=== PATIENT | male | born 1975 | race Two or more races ===

== ENCOUNTER 2019-11-06 12:45 | Outpatient (CLI) | payer SELFPAY | END 2019-11-06 23:59 | disposition home or self-care (01) | LOC: RAD 12:45 | PROVIDERS: ATTEND Physician Assistant | DX: R91.8 Other nonspecific abnormal finding of lung field (principal); J18.9 Pneumonia, unspecified organism; R06.00 Dyspnea, unspecified | CPT/HCPCS: 71046 ==

== ENCOUNTER 2019-11-06 14:19 | Inpatient (IN) | payer OTHER ==
[~2019-11-06] VITALS: Ht 182.9 cm; Wt 83.1 kg
--- NOTE | 2019-11-06 14:40 | NUR ---
PT C/O COUGH X11 DAYS, HAS BEEN ON ABX FOR 5 DAYS. PER PCP, XRAY TODAY SHOWS PNA. NO RESP DISTRESS NOTED, NOR ANY COUGHING. PT CONNECTED TO MONITORING. CALL LIGHT IN REACH. AWAITNG ORDERS AT THIS TIME.
--- NOTE | 2019-11-06 15:16 | NUR ---
PIV PLACED, LABS DRAWN AND SENT TO LAB. PT RESTING COMFORTABLY ON GURJOSE. ALEXIA.
[2019-11-06] MEDS ORDERED: SODIUM CHLORIDE FLUSH 10ML SYR IVF ONE (15:30)
--- NOTE | 2019-11-06 15:30 | NUR ---
REPORT GIVEN TO YOAN ESTEVEZ. PT MOVED TO [facility] ROOM. PT TO BE ADMITTED.
--- NOTE | 2019-11-06 15:32 | NUR ---
SUPPLY CHAIN PLANNER: COVID NUMBER GIVEN
[2019-11-06 15:43] LABS: ALANINE AMINOTRANSFERASE 46 U/L (12-78); ALBUMIN 2.9 g/dL (3.4-5.0); ANION GAP 7 mmol/L (5-15); CALCIUM 7.9 mg/dL (8.5-10.1); CHLORIDE 106 mmol/L (98-107); CREATININE 0.89 mg/dL (0.7-1.3)
[2019-11-06 15:47] LABS: BASOPHILS # (AUTO) 0.02 x10^3/uL (0-0.1); BASOPHILS % (AUTO) 0 % (0-1); EOSINOPHILS % (AUTO) 0 % (1-7); LYMPHOCYTES # (AUTO) 0.88 x10^3/uL (1-3.4); LYMPHOCYTES % (AUTO) 15 % (22-44); MD NO; MEAN CORPUSCULAR HGB CONC 34.8 g/dL (33.2-36.2); MEAN CORPUSCULAR VOLUME 89.2 fL (81-97); MEAN PLATELET VOLUME 8.5 fL (7.4-10.4); MONOCYTES # (AUTO) 0.28 x10^3/uL (0.2-0.8); MONOCYTES % (AUTO) 5 % (2-9); NEUTROPHILS # (AUTO) 4.72 x10^3/uL (1.8-6.8); NEUTROPHILS % (AUTO) 80 % (42-75); PLATELET COUNT 187 x10^3/uL (130-400); RED BLOOD COUNT 4.55 x10^6/uL (4.38-5.82); RED CELL DISTRIBUTION WIDTH 12.6 % (9.4-14.8)
[2019-11-06 15:48] LABS: ALKALINE PHOSPHATASE 65 U/L (45-117); BILIRUBIN,TOTAL 0.3 mg/dL (0.2-1.0); TOTAL PROTEIN 7.1 g/dL (6.4-8.2); TROPONIN I < 0.015 ng/mL (0.000-0.045)
--- NOTE | 2019-11-06 15:48 | NUR ---
MOVED PATIENT FROM ROOM 23 TO ROOM 39 FOR NEGATIVE PRESSURE AND RULE-OUT COVID-19. VS STABLE AT THIS TIME. PATIENT WAS ABLE TO AMBULATE WITHOUT ASSISTANCE FROM [facility] FEET TO [facility] IN ROOM 39. PT TACHYPNIC AT APPROX 30 RESP./MIN. SPO2 ON ROOM AIR IS 92%. PT IN NORMAL SINUS RHYTHM. CALL LIGHT IN LAP.
[2019-11-06 15:51] LABS: HCT (SEDRATE) 40.6 % (39.2-51.8)
[2019-11-06] MEDS ORDERED: ACETAMINOPHEN 325 MG TABLET PO PRN (16:00)
[2019-11-06] MEDS: HYDROXYCHLOROQUINE 200 MG TABLET PO SCH ×3 (16:00→23:50)
[2019-11-06] MEDS ORDERED: morphine SULFATE 10 MG/ML, 1ML IVPush PRN (16:00)
[2019-11-06] MEDS ORDERED: ALBUTEROL HFA 90 MCG/SPRAY INH ONE (16:00)
[2019-11-06 16:11] LABS: C-REACTIVE PROTEIN, QUANT 1.7 mg/dL (0.02-0.49)
[2019-11-06] MEDS: CEFTRIAXONE PMX 2GM/50ML 50 ML IV SCH (16:45)
[2019-11-06] MEDS: ENOXAPARIN 40 MG/0.4 ML SQ SCH (16:46)
--- NOTE | 2019-11-06 16:48 | NUR ---
PT MEDICATED PER EMAR. VS UPDATED AND WNL. ALBUTEROL GIVEN WITH SPACER CHAMBER.
[2019-11-06] MEDS: SODIUM CHLORIDE 0.9% 1,000 ML IV SCH ×2 (17:15→23:14)
--- NOTE | 2019-11-06 17:16 | NUR ---
IV ROCEPHIN COMPLETE. NS AT 125ML/HR STARTED. PATIENT VOIDED 250ML URINE IN URINAL. 2 WARM BLANKETS PROVIDED. PT RESTING WITH NO COMPLAINTS. VS STABLE.
[2019-11-06] MEDS ORDERED: POTASSIUM CHLORIDE 20 MEQ TAB.ER.PRT PO ONE (17:30)
--- NOTE | 2019-11-06 17:32 | NUR ---
SBAR TELEPHONE HAND-OFF REPORT GIVEN TO HERB PALAFOX IN ICU.
--- NOTE | 2019-11-06 17:58 | NUR ---
ANJEL MTZ TOOK PATIENT TO ICU AND WAS THE "DIRTY" TRANSPORTER.
--- NOTE | 2019-11-06 17:58 | NUR ---
THIS TECH WAS "CLEAN" DURING TRANSPORT
[2019-11-06 18:06] VITALS: BP 135/83
[2019-11-06 22:00] VITALS: BP 122/78
[2019-11-06 23:05] VITALS: BP 176/97
[2019-11-07 03:11] VITALS: BP 112/59
[2019-11-07] MEDS: SODIUM CHLORIDE 0.9% 1,000 ML IV SCH (03:13)
[2019-11-07 05:50] LABS: BASOPHILS # (AUTO) 0.02 x10^3/uL (0-0.1); BASOPHILS % (AUTO) 0 % (0-1); EOSINOPHILS # (AUTO) 0.02 x10^3/uL (0-0.4); EOSINOPHILS % (AUTO) 0 % (1-7); LYMPHOCYTES % (AUTO) 19 % (22-44); MD NO; MEAN CORPUSCULAR HEMOGLOBIN 31.2 pg (27.5-34.5); MEAN CORPUSCULAR HGB CONC 34.7 g/dL (33.2-36.2); MEAN CORPUSCULAR VOLUME 89.8 fL (81-97); MEAN PLATELET VOLUME 8.5 fL (7.4-10.4); MONOCYTES # (AUTO) 0.36 x10^3/uL (0.2-0.8); MONOCYTES % (AUTO) 5 % (2-9); NEUTROPHILS # (AUTO) 5.11 x10^3/uL (1.8-6.8); NEUTROPHILS % (AUTO) 75 % (42-75); PLATELET COUNT 187 x10^3/uL (130-400); RED BLOOD COUNT 4.24 x10^6/uL (4.38-5.82); RED CELL DISTRIBUTION WIDTH 12.6 % (9.4-14.8)
[2019-11-07 06:03] LABS: ALBUMIN 2.6 g/dL (3.4-5.0); ANION GAP 7 mmol/L (5-15); CALCIUM 7.7 mg/dL (8.5-10.1); CHLORIDE 107 mmol/L (98-107)
[2019-11-07 06:07] LABS: ALANINE AMINOTRANSFERASE 43 U/L (12-78); ALKALINE PHOSPHATASE 59 U/L (45-117); BILIRUBIN,TOTAL 0.5 mg/dL (0.2-1.0); CREATININE 0.72 mg/dL (0.7-1.3); TOTAL PROTEIN 6.4 g/dL (6.4-8.2)
[2019-11-07 07:30] VITALS: BP 115/69
[2019-11-07] MEDS: HYDROXYCHLOROQUINE 200 MG TABLET PO SCH ×2 (08:13→15:47)
[2019-11-07 09:23] LABS: CLOSTRIDIUM DIFFICILE ANTIGEN NEGATIVE; CLOSTRIDIUM DIFFICILE TOXIN NEGATIVE (Negative)
[2019-11-07] MEDS ORDERED: DIPHENOXYLATE/ATROPINE TABLET PO PRN (11:00)
[2019-11-07] MEDS: ENOXAPARIN 40 MG/0.4 ML SQ SCH (15:46)
[2019-11-07] MEDS: CEFTRIAXONE PMX 2GM/50ML 50 ML IV SCH (15:47)
[2019-11-07 20:00] VITALS: BP 144/90
[2019-11-07] MEDS: TRAZODONE 50MG TABLET PO SCH (21:06)
[2019-11-08] MEDS: HYDROXYCHLOROQUINE 200 MG TABLET PO SCH ×3 (00:22→16:30)
[2019-11-08 02:00] VITALS: BP 100/67
[2019-11-08 05:38] LABS: BASOPHILS # (AUTO) 0.02 x10^3/uL (0-0.1); BASOPHILS % (AUTO) 0 % (0-1); EOSINOPHILS # (AUTO) 0.05 x10^3/uL (0-0.4); EOSINOPHILS % (AUTO) 1 % (1-7); LYMPHOCYTES # (AUTO) 1.22 x10^3/uL (1-3.4); LYMPHOCYTES % (AUTO) 22 % (22-44); MD NO; MEAN CORPUSCULAR HEMOGLOBIN 30.8 pg (27.5-34.5); MEAN CORPUSCULAR HGB CONC 33.8 g/dL (33.2-36.2); MEAN CORPUSCULAR VOLUME 91.2 fL (81-97); MEAN PLATELET VOLUME 7.7 fL (7.4-10.4); MONOCYTES % (AUTO) 9 % (2-9); NEUTROPHILS # (AUTO) 3.71 x10^3/uL (1.8-6.8); NEUTROPHILS % (AUTO) 67 % (42-75); PLATELET COUNT 248 x10^3/uL (130-400); RED BLOOD COUNT 4.52 x10^6/uL (4.38-5.82); RED CELL DISTRIBUTION WIDTH 12.9 % (9.4-14.8)
[2019-11-08 05:49] LABS: ANION GAP 5 mmol/L (5-15); CALCIUM 8.8 mg/dL (8.5-10.1); CHLORIDE 109 mmol/L (98-107); CREATININE 0.69 mg/dL (0.7-1.3)
[2019-11-08 09:43] VITALS: BP 119/71
[2019-11-08 10:19] LABS: C-REACTIVE PROTEIN, QUANT 1.9 mg/dL (0.02-0.49)
[2019-11-08 13:38] LABS: O2 FLOW 5 L/min
[2019-11-08 15:30] VITALS: BP 111/74
[2019-11-08] MEDS: ENOXAPARIN 40 MG/0.4 ML SQ SCH (16:30)
[2019-11-08] MEDS: CEFTRIAXONE PMX 2GM/50ML 50 ML IV SCH (16:30)
[2019-11-08 20:00] VITALS: BP 111/74
[2019-11-08] MEDS: TRAZODONE 50MG TABLET PO SCH (21:08)
[2019-11-09] MEDS: HYDROXYCHLOROQUINE 200 MG TABLET PO SCH ×3 (00:17→16:23)
[2019-11-09 02:00] VITALS: BP 107/75
[2019-11-09] MEDS ORDERED: LORazepam 2 MG/ML, 1ML IVPush ONE (02:30)
[2019-11-09] MEDS ORDERED: LORazepam 2 MG/ML, 1ML ONE (02:30)
[2019-11-09 05:01] LABS: BASOPHILS % (AUTO) 0 % (0-1); EOSINOPHILS # (AUTO) 0.11 x10^3/uL (0-0.4); EOSINOPHILS % (AUTO) 2 % (1-7); LYMPHOCYTES # (AUTO) 1.17 x10^3/uL (1-3.4); LYMPHOCYTES % (AUTO) 17 % (22-44); MD NO; MEAN CORPUSCULAR HEMOGLOBIN 30.7 pg (27.5-34.5); MEAN CORPUSCULAR HGB CONC 34.3 g/dL (33.2-36.2); MEAN CORPUSCULAR VOLUME 89.7 fL (81-97); MEAN PLATELET VOLUME 8.1 fL (7.4-10.4); MONOCYTES # (AUTO) 0.63 x10^3/uL (0.2-0.8); MONOCYTES % (AUTO) 9 % (2-9); NEUTROPHILS # (AUTO) 5.13 x10^3/uL (1.8-6.8); NEUTROPHILS % (AUTO) 73 % (42-75); PLATELET COUNT 304 x10^3/uL (130-400); RED BLOOD COUNT 4.36 x10^6/uL (4.38-5.82); RED CELL DISTRIBUTION WIDTH 12.9 % (9.4-14.8)
[2019-11-09 05:09] LABS: ALBUMIN 2.7 g/dL (3.4-5.0); ANION GAP 6 mmol/L (5-15); CALCIUM 8.7 mg/dL (8.5-10.1); CHLORIDE 109 mmol/L (98-107)
[2019-11-09 05:18] LABS: ALANINE AMINOTRANSFERASE 67 U/L (12-78); ALKALINE PHOSPHATASE 73 U/L (45-117); BILIRUBIN,TOTAL 0.5 mg/dL (0.2-1.0); TOTAL PROTEIN 7.1 g/dL (6.4-8.2)
[2019-11-09 08:10] VITALS: BP 109/67
[2019-11-09] MEDS ORDERED: SODIUM CHLORIDE NASAL SPRAY 45ML BOTTLE NAS PRN (12:30)
[2019-11-09 14:46] VITALS: BP 113/73
[2019-11-09] MEDS: ENOXAPARIN 40 MG/0.4 ML SQ SCH (16:23)
[2019-11-09] MEDS: CEFTRIAXONE PMX 2GM/50ML 50 ML IV SCH (16:25)
[2019-11-09 20:18] VITALS: BP 123/73
[2019-11-09] MEDS: TRAZODONE 100MG TABLET PO SCH (20:32)
[2019-11-10] MEDS: HYDROXYCHLOROQUINE 200 MG TABLET PO SCH ×4 (00:59→23:45)
[2019-11-10 01:00] VITALS: BP 111/55
[2019-11-10 07:53] VITALS: BP 120/68
[2019-11-10 10:38] LABS: BASOPHILS # (AUTO) 0.02 x10^3/uL (0-0.1); BASOPHILS % (AUTO) 0 % (0-1); EOSINOPHILS # (AUTO) 0.14 x10^3/uL (0-0.4); EOSINOPHILS % (AUTO) 2 % (1-7); LYMPHOCYTES # (AUTO) 0.94 x10^3/uL (1-3.4); LYMPHOCYTES % (AUTO) 14 % (22-44); MD NO; MEAN CORPUSCULAR HEMOGLOBIN 31.2 pg (27.5-34.5); MEAN CORPUSCULAR HGB CONC 34.3 g/dL (33.2-36.2); MEAN CORPUSCULAR VOLUME 90.9 fL (81-97); MEAN PLATELET VOLUME 7.6 fL (7.4-10.4); MONOCYTES # (AUTO) 0.69 x10^3/uL (0.2-0.8); MONOCYTES % (AUTO) 10 % (2-9); NEUTROPHILS # (AUTO) 4.93 x10^3/uL (1.8-6.8); NEUTROPHILS % (AUTO) 73 % (42-75); PLATELET COUNT 391 x10^3/uL (130-400); RED BLOOD COUNT 4.43 x10^6/uL (4.38-5.82); RED CELL DISTRIBUTION WIDTH 12.8 % (9.4-14.8)
[2019-11-10 13:56] VITALS: BP 119/68
[2019-11-10 15:22] LABS: OCCULT BLOOD NEGATIVE (NEGATIVE)
[2019-11-10] MEDS: ZINC SULFATE 220 MG CAPSULE PO SCH (16:27)
[2019-11-10] MEDS: CEFTRIAXONE PMX 2GM/50ML 50 ML IV SCH (16:27)
[2019-11-10 20:30] VITALS: BP 135/82
[2019-11-10] MEDS: ENOXAPARIN 40 MG/0.4 ML SQ SCH (20:30)
[2019-11-10] MEDS: TRAZODONE 100MG TABLET PO SCH (20:30)
[2019-11-11 03:34] VITALS: BP 121/79
[2019-11-11] MEDS ORDERED: PANTOPRAZOLE 40MG TABLET PO SCH (06:00)
[2019-11-11 06:15] LABS: BASOPHILS # (AUTO) 0.02 x10^3/uL (0-0.1); BASOPHILS % (AUTO) 0 % (0-1); EOSINOPHILS # (AUTO) 0.22 x10^3/uL (0-0.4); EOSINOPHILS % (AUTO) 4 % (1-7); LYMPHOCYTES # (AUTO) 1.19 x10^3/uL (1-3.4); LYMPHOCYTES % (AUTO) 22 % (22-44); MD NO; MEAN CORPUSCULAR HGB CONC 34.1 g/dL (33.2-36.2); MEAN CORPUSCULAR VOLUME 90.9 fL (81-97); MEAN PLATELET VOLUME 7.3 fL (7.4-10.4); MONOCYTES # (AUTO) 0.47 x10^3/uL (0.2-0.8); MONOCYTES % (AUTO) 9 % (2-9); NEUTROPHILS # (AUTO) 3.61 x10^3/uL (1.8-6.8); NEUTROPHILS % (AUTO) 66 % (42-75); PLATELET COUNT 426 x10^3/uL (130-400); RED BLOOD COUNT 4.46 x10^6/uL (4.38-5.82); RED CELL DISTRIBUTION WIDTH 12.7 % (9.4-14.8)
[2019-11-11 06:22] LABS: ALANINE AMINOTRANSFERASE 113 U/L (12-78); ALBUMIN 2.9 g/dL (3.4-5.0); ANION GAP 4 mmol/L (5-15); CALCIUM 9.2 mg/dL (8.5-10.1); CHLORIDE 109 mmol/L (98-107); CREATININE 0.79 mg/dL (0.7-1.3)
[2019-11-11 06:24] LABS: ALKALINE PHOSPHATASE 102 U/L (45-117); BILIRUBIN,TOTAL 0.4 mg/dL (0.2-1.0); TOTAL PROTEIN 7.8 g/dL (6.4-8.2)
[2019-11-11] MEDS: HYDROXYCHLOROQUINE 200 MG TABLET PO SCH ×2 (08:22→16:09)
[2019-11-11 09:04] VITALS: BP 117/71
[2019-11-11 12:26] VITALS: BP 115/73
[2019-11-11] MEDS: CEFTRIAXONE PMX 2GM/50ML 50 ML IV SCH (16:09)
[2019-11-11] MEDS: ZINC SULFATE 220 MG CAPSULE PO SCH (16:09)
[2019-11-11 20:22] VITALS: BP 134/87
[2019-11-11] MEDS: ENOXAPARIN 40 MG/0.4 ML SQ SCH (21:08)
[2019-11-11] MEDS: TEMAZEPAM 15 MG CAPSULE PO PRN (22:20)
[2019-11-12] MEDS: HYDROXYCHLOROQUINE 200 MG TABLET PO SCH ×3 (00:13→16:15)
[2019-11-12 01:15] VITALS: BP 125/79
[2019-11-12 05:09] LABS: ALBUMIN 2.8 g/dL (3.4-5.0); ANION GAP 4 mmol/L (5-15); CHLORIDE 107 mmol/L (98-107)
[2019-11-12 05:15] LABS: ALANINE AMINOTRANSFERASE 113 U/L (12-78); ALKALINE PHOSPHATASE 99 U/L (45-117); BILIRUBIN,TOTAL 0.5 mg/dL (0.2-1.0); CREATININE 0.79 mg/dL (0.7-1.3); TOTAL PROTEIN 7.5 g/dL (6.4-8.2); TROPONIN I < 0.015 ng/mL (0.000-0.045)
[2019-11-12 07:53] VITALS: BP 114/70
[2019-11-12 12:39] VITALS: BP 129/73
[2019-11-12] MEDS: ZINC SULFATE 220 MG CAPSULE PO SCH (16:15)
[2019-11-12] MEDS: CEFTRIAXONE PMX 2GM/50ML 50 ML IV SCH (16:15)
[2019-11-12 20:23] VITALS: BP 123/79
[2019-11-12] MEDS: ENOXAPARIN 40 MG/0.4 ML SQ SCH (21:41)
[2019-11-12] MEDS: TEMAZEPAM 15 MG CAPSULE PO PRN (21:41)
[2019-11-13] MEDS: HYDROXYCHLOROQUINE 200 MG TABLET PO SCH ×2 (00:13→08:21)
[2019-11-13 03:09] VITALS: BP 115/76
[2019-11-13 08:34] VITALS: BP 111/77
[2019-11-13] MEDS ORDERED: CHOL40002 PO (09:44)
[2019-11-13] MEDS ORDERED: ZINC220C7 PO (09:44)
[2019-11-13] MEDS ORDERED: ASCO10004 PO (09:44)
== END 2019-11-13 12:00 | disposition home or self-care (01) | DRG 177 ==
LOC: ED 14:35 → EDIP 15:31 → ICU 17:51 → 3E 11-10 18:32
PROVIDERS: ADMIT Internal Medicine Infectious Disease; ATTEND Hospitalist
DX: U07.1 COVID-19 (principal); J12.89 Other viral pneumonia; J96.01 Acute respiratory failure with hypoxia; G47.00 Insomnia, unspecified; D72.810 Lymphocytopenia; R19.5 Other fecal abnormalities; J34.89 Other specified disorders of nose and nasal sinuses; R74.0 Nonspecific elevation of levels of transaminase and lactic acid dehydrogenase [LDH]
CPT/HCPCS: 36415; 36600; 71045; 80048; 80053; 80074; 82272; 82803; 83615; 83880; 84145; 84484; 85025; 85379; 85651; 86140; 86738; 87081; 87324; 87449; 87486; 87581; 87633; 87798; 93005; 99285; G0378; J0696; J1650; J2060; J7030